=== PATIENT | male | born 1970 | race Caucasian/White ===

== ENCOUNTER → 2018-05-14 10:39 | Outpatient (CLI) | payer MEDICAID, SELFPAY ==
--- NOTE | 2018-05-14 10:41 | RAD_ITS ---
STUDY: X-RAY - PELVIS AND BILATERAL HIPS REASON FOR EXAM: Pain, no specific injury. TECHNIQUE: Radiological exam, hip, bilateral, with pelvis when performed; 2 views COMPARISON: None. FINDINGS: There is mild vascular calcification. There are degenerative changes of the lower lumbar spine. Normal bilateral iliac wings, sacroiliac joints and visualized sacrum. Normal bilateral superior and inferior pubic rami. There is a bone island in the right parasymphyseal bone. Normal pubic symphysis. Normal bilateral ischial tuberosities. There is a nonspherical right femoral head. Normal right acetabulum. Normal right hip joint. There is a nonspherical left femoral head. Normal left acetabulum. Normal left hip joint. 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 Electronically Signed: Lawrence Lopez MD at 14:00 EDT Tel , Service support ,
== END ==
PROVIDERS: Family Provider Nurse Practitioner Family; PCP Nurse Practitioner Family; Visit Provider Orthopaedic Surgery
DX: M25.551 Pain in right hip (principal); M25.552 Pain in left hip
CPT/HCPCS: 73521

== ENCOUNTER → 2018-06-27 10:44 | Outpatient (CLI) | payer MEDICAID, SELFPAY ==
--- NOTE | 2018-06-27 10:46 | RAD_ITS ---
STUDY: X-RAY - RIGHT KNEE REASON FOR EXAM: Pain, no specific injury. TECHNIQUE: 4 view(s) of the knee. COMPARISON: None. FINDINGS: Normal visualized distal femur. Normal visualized proximal tibia and fibula. Normal proximal tibiofibular articulation. Normal medial femorotibial compartment. Normal lateral femorotibial compartment. Normal patellofemoral articulation. The soft tissue structures are unremarkable. RAD/Knee 4 or More Views IMPRESSION: Normal x-ray examination of the right knee. Electronically Signed: Lawrence Lopez MD at 14:06 EDT Tel , Service support ,
== END ==
PROVIDERS: Family Provider Nurse Practitioner Family; PCP Nurse Practitioner Family; Visit Provider Orthopaedic Surgery
DX: M25.561 Pain in right knee (principal)
CPT/HCPCS: 73564

== ENCOUNTER → 2019-04-08 10:45 | Outpatient (CLI) | payer MEDICARE, MEDICAID, SELFPAY ==
--- NOTE | 2019-04-08 10:52 | RAD_ITS ---
STUDY: X-RAY - PELVIS AND RIGHT HIP REASON FOR EXAM: Male, 49 years old. Right hip pain, no injury TECHNIQUE: 3 views of the pelvis and hip. COMPARISON: 05/14/2018 FINDINGS: No acute fracture or dislocation. No significant osteophytosis or joint space narrowing. Postsurgical changes of the lumbar spine. Mild degenerative change of the left hip. RAD/HIP, UNI W/ Pelvis 2-3 Views IMPRESSION: Unremarkable right hip Electronically Signed: Lorne Stout DO at 12:45 EDT Tel , Service support ,
== END ==
PROVIDERS: Family Provider Nurse Practitioner Family; PCP Nurse Practitioner Family; Referring Provider Anesthesiology Pain Medicine; Visit Provider Anesthesiology Pain Medicine
DX: M25.559 Pain in unspecified hip (principal)
CPT/HCPCS: 73502

== ENCOUNTER → 2019-06-17 | Outpatient (CLI) | payer MEDICARE, MEDICAID, SELFPAY ==
[2019-06-17 07:54] VITALS: BMI 35.9
--- NOTE | 2019-06-17 08:08 | RAD_ITS ---
STUDY: X-RAY - LUMBAR SPINE REASON FOR EXAM: Male, 49 years old. Postop TECHNIQUE: 4 view(s) of the lumbar spine were obtained. COMPARISON: None FINDINGS: Patient is postop from right pedicle screw fusion surgery at L4 and S1. Hardware is intact and free of complication. There is straightening of the normal lumbar lordosis. There is a mild dextroscoliosis of the lumbar spine. There is a normal alignment of the vertebrae. There is multilevel endplate spondylosis of the lumbar vertebrae. There is multi-level degenerative disc disease with multi-level disc space narrowing. There is no demonstrated fracture. There is atherosclerotic calcification of the abdominal aorta without a demonstrated aneurysm. RAD/L/S Spine Min 4 Views IMPRESSION: Postsurgical and degenerative changes in the lumbar spine, no demonstrated fracture or suspicious osseous lesion. Electronically Signed: Deny Scanlon MD at 8:35 EDT , Service support ,
== END | disposition home or self-care (01) ==
LOC: HPRAD 08:08
PROVIDERS: Family Provider Nurse Practitioner Family; PCP Nurse Practitioner Family; Referring Provider Orthopaedic Surgery; Visit Provider Orthopaedic Surgery
DX: M54.5 Low back pain (principal)
CPT/HCPCS: 72110

== ENCOUNTER → 2019-10-31 13:22 | Outpatient (CLI) | payer MEDICARE, MEDICAID, SELFPAY ==
[2019-10-31 13:15] VITALS: BMI 35.9
--- NOTE | 2019-10-31 13:27 | RAD_ITS ---
STUDY: X-RAY - LUMBAR SPINE REASON FOR EXAM: Male, 49 years old. Follow-up lumbar spine surgery. TECHNIQUE: 4 view(s) of the lumbar spine were obtained. COMPARISON: 06/17/2019 FINDINGS: The patient is status post posterior fusion from L3 to S1. There is normal lumbar lordosis. There is minimal scoliosis, convexity to the right. There is a normal alignment of the vertebrae. There is multilevel endplate spondylosis of the lumbar vertebrae. There is multi-level degenerative disc disease with multi-level disc space narrowing. There is no demonstrated fracture. There is no demonstrated spondylolysis of the pars interarticulares. There is atherosclerotic calcification of the abdominal aorta without a demonstrated aneurysm. RAD/L/S Spine Min 4 Views IMPRESSION: Postoperative changes as described above with no acute fracture or spondylolisthesis. Electronically Signed: Gayatri Khan MD at 3:44 EST , Service support ,
== END ==
PROVIDERS: Family Provider Nurse Practitioner Family; PCP Nurse Practitioner Family; Referring Provider Physician Assistant; Visit Provider Physician Assistant
DX: Z98.890 Other specified postprocedural states (principal)
CPT/HCPCS: 72110

== ENCOUNTER → 2020-01-06 | Outpatient (CLI) | payer MEDICARE, MEDICAID, SELFPAY ==
[2020-01-06 15:09] VITALS: BMI 35.9
--- NOTE | 2020-01-06 15:10 | RAD_ITS ---
STUDY: X-RAY - LUMBAR SPINE REASON FOR EXAM: Male, 49 years old. FOLLOW UP LOWER BACK SURGERY TECHNIQUE: 2 view(s) of the lumbar spine were obtained. COMPARISON: 4 images of the lumbar spine October 31, 2019. FINDINGS: Again seen are prior L3-4, L4-5, and L5-S1 discectomies with placement of prostheses as well as bilateral posterior lumbosacral fusion with metal hardware. Bilateral transpedicular screws at L3, L4, and S1 connected on either side of a longitudinal metal rods. No demonstrated osseous destructive lesion or compression fracture. Normal lumbar lordosis. There is mild rightward subluxation of L3 on L4, and a 10 degree dextroscoliosis at L3-4. There is stable endplate spondylosis of the L2-3 vertebrae. There is stable moderate narrowing of the L2-3 intervertebral disc height. Shallow focal invaginations of the superior L1 and L2 vertebral endplates are consistent with benign Schmorl''s nodes. There is stable hypertrophic degenerative changes of the lumbar facet joints. There is stable mild atherosclerotic calcification of the abdominal aorta. RAD/Lumbar Spine 2 or 3 Views IMPRESSION: Stable x-ray examination of the lumbar spine, as described. Electronically Signed: Deny Taylor MD at 19:58 EST , Service support ,
== END | disposition home or self-care (01) ==
LOC: HPRAD 15:10
PROVIDERS: PCP Nurse Practitioner Family; Referring Provider Orthopaedic Surgery; Visit Provider Orthopaedic Surgery
DX: Z47.89 Encounter for other orthopedic aftercare (principal)
CPT/HCPCS: 72100